=== PATIENT | female | born 1980 | race Hispanic/Latino ===

== ENCOUNTER 2017-06-22 08:12 | Outpatient (CLI) | payer SELFPAY ==
[2017-06-22 09:04] LABS: Hemoglobin A1c 6.5 % (4.0-6.0)
[2017-06-22 16:56] LABS: Creatinine, Urine 126.21 mg/dL (47-110); Microalbumin Urine Less than 1.0 mg/dL (0.5-50.0); Microalbumin/Creat Ratio 7.9 mg/g (Less than 30)
== END 2017-06-22 08:13 | disposition home or self-care (01) ==
LOC: MADLABBHPM 08:12
PROVIDERS: ATTEND Family Medicine
DX: E11.9 Type 2 diabetes mellitus without complications (principal)
CPT/HCPCS: 36415; 82043; 83036

== ENCOUNTER 2018-08-24 22:50 | Emergency (ER) | payer SELFPAY ==
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
== END 2018-08-25 00:15 | disposition home or self-care (01) ==
LOC: MADERS 22:50
DX: M54.2 Cervicalgia (principal); E11.9 Type 2 diabetes mellitus without complications; F32.9 Major depressive disorder, single episode, unspecified; Z79.84 Long term (current) use of oral hypoglycemic drugs; Y04.0XXA Assault by unarmed brawl or fight, initial encounter
CPT/HCPCS: 70491

== ENCOUNTER 2020-01-29 15:56 | Emergency (ER) | payer SELFPAY ==
[2020-01-29] MEDS ORDERED: predniSONE 20 MG TAB ONE (17:00)
[2020-01-29] MEDS ORDERED: Fluconazole 100 MG TAB ONE (17:00)
[2020-01-29] MEDS ORDERED: diphenhydrAMINE 25 MG CAP ONE (17:00)
== END 2020-01-29 18:21 | disposition home or self-care (01) ==
LOC: MADERS 15:56
DX: T78.40XA Allergy, unspecified, initial encounter (principal); B37.3 Candidiasis of vulva and vagina; E11.9 Type 2 diabetes mellitus without complications; F32.9 Major depressive disorder, single episode, unspecified; Z79.84 Long term (current) use of oral hypoglycemic drugs; Z79.899 Other long term (current) drug therapy
CPT/HCPCS: 99282; J7512; Q0163

== ENCOUNTER 2020-10-04 05:44 | Emergency (ER) | payer SELFPAY ==
[2020-10-04] MEDS ORDERED: methylPREDNISolone Sod Succ/PF 125 MG/2 ML VIAL ONE (06:17)
== END 2020-10-04 06:36 | disposition home or self-care (01) ==
LOC: MADERS 05:44
DX: M54.41 Lumbago with sciatica, right side (principal); E11.9 Type 2 diabetes mellitus without complications; Z79.84 Long term (current) use of oral hypoglycemic drugs; Z79.899 Other long term (current) drug therapy
CPT/HCPCS: 96372; 99283; J2930

== ENCOUNTER 2020-10-19 18:27 | Outpatient (CLI) | payer SELFPAY | END 2020-10-19 18:28 | disposition home or self-care (01) | LOC: MADLAB 18:27 | PROVIDERS: ATTEND Family Medicine | DX: Z01.411 Encounter for gynecological examination (general) (routine) with abnormal findings (principal) | CPT/HCPCS: 87624 ==

== ENCOUNTER 2021-03-24 03:40 | Emergency (ER) | payer OTHER, SELFPAY | END 2021-03-24 04:59 | disposition home or self-care (01) | LOC: MADERS 03:40 | DX: M25.552 Pain in left hip (principal); E11.9 Type 2 diabetes mellitus without complications; W00.0XXA Fall on same level due to ice and snow, initial encounter; Y92.69 Other specified industrial and construction area as the place of occurrence of the external cause | CPT/HCPCS: 72170; 99283 ==